=== PATIENT | male | born 1945 | race Caucasian/White ===

== ENCOUNTER 2018-07-03 20:19 | Emergency (ER) | payer MEDICARE ==
[~2018-07-03] VITALS: Ht 180.3 cm; Wt 74.8 kg
[2018-07-03] MEDS ORDERED: DULOXETINE 60 MG (20:33)
[2018-07-03] MEDS ORDERED: ATORVASTATIN CALCIUM 20 MG TAB (20:33)
[2018-07-03] MEDS ORDERED: DULO60CA45 (20:33)
[2018-07-03] MEDS ORDERED: BUDE10.2 (20:33)
[2018-07-03] MEDS ORDERED: TAMS-3 (20:33)
--- NOTE | 2018-07-03 20:39 | NUR ---
RECEIVED PATIENT TO ROOM WITH C/O RIGHT NOSE BLEED, NOT ACTIVELY BLEEDING AT THIS TIME. SEEN BY ER WILL CONTINUE TO MONITOR. NO HEADACHE OR PAIN, [id number], NO ACUTE DISTRESS.
[2018-07-03] MEDS ORDERED: AMLODIPINE 5 MG TABLET ONE (20:53)
[2018-07-03] MEDS ORDERED: AMLODIPINE 5 MG TABLET PO ONE (21:00)
--- NOTE | 2018-07-03 21:37 | NUR ---
PATIENT REMAIN STABLE,NO MORE BLEEDING, DISCHARGE HOME WITH INSTRUCTIONNS.
[2018-07-03 21:38] VITALS: BP 154/92
== END 2018-07-03 21:40 | disposition home or self-care (01) ==
LOC: ER 20:23
DX: R04.0 Epistaxis (principal); I10 Essential (primary) hypertension; E78.5 Hyperlipidemia, unspecified; J45.909 Unspecified asthma, uncomplicated
CPT/HCPCS: A4663